=== PATIENT | male | born 1935 | race Two or more races ===

== ENCOUNTER 2021-05-26 15:45 | Inpatient (IN) | payer OTHER ==
[~2021-05-26] VITALS: Ht 167.6 cm; Wt 88.5 kg
--- NOTE | 2021-05-26 15:45 | NUR ---
BIBRA 85 from home c/o right sided chest pain radiates to midsternal pain on/off x 15days, Pressure-like per patient report. Patient was given ASA 162mg PO and 0.4 Nitro SL. Patient has nitro patch noted on his right chest. EKG in progress at . EKG: ventricular paced at 65bpm. Resp is even and unlabored with no apparent distress noted. Awaiting md for eval.
[2021-05-26] MEDS ORDERED: NITROGLYCERIN PACKET 1 GM PACKET ONE (16:28)
[2021-05-26] MEDS ORDERED: ASPIRIN 81 MG TAB.CHEW ONE (16:29)
[2021-05-26] MEDS ORDERED: ASPIRIN 81 MG TAB.CHEW PO ONE (16:30)
[2021-05-26] MEDS ORDERED: NITROGLYCERIN PACKET 1 GM PACKET TD ONE (16:30)
[2021-05-26 16:45] LABS: BASOPHILS % (AUTO) 0.5 % (0.0-2.0); EOSINOPHILS % (AUTO) 0.8 % (0.0-6.0); HEMATOCRIT 37 % (39-51); HEMOGLOBIN 12.6 g/dL (13.5-17.5); LYMPHOCYTES # (AUTO) 1.7 K/uL (0.8-4.8); MEAN CORPUSCULAR HGB CONC 34 g/dl (31.0-36.0); MEAN CORPUSCULAR VOLUME 97 fL (80-96); MONOCYTES # (AUTO) 0.9 K/uL (0.1-1.30); MONOCYTES % (AUTO) 13.2 % (2.0-12.0); NEUTROPHILS % (AUTO) 59.5 % (43.0-81.0); PLATELET COUNT (AUTO) 195 K/uL (150-450); WHITE BLOOD COUNT (AUTO) 6.7 K/uL (4.3-11.0)
--- NOTE | 2021-05-26 16:57 | NUR ---
SPOKE TO GRAND DAUGHTER CEE [phone]
[2021-05-26 16:58] LABS: CALCIUM, SERUM 9.1 mg/dL (8.5-10.1); CREATININE 1.2 mg/dL (0.6-1.3); POTASSIUM 3.9 mmol/L (3.5-5.1)
[2021-05-26 17:03] LABS: ALBUMIN 3.9 g/dL (3.4-5.0); BILIRUBIN,DIRECT 0.2 mg/dL (0.0-0.2); BILIRUBIN,TOTAL 0.6 mg/dL (0.2-1.0); TOTAL PROTEIN, SERUM 7.2 g/dL (6.4-8.2)
[2021-05-26] MEDS ORDERED: DILT300C57 PO (17:20)
[2021-05-26] MEDS ORDERED: ACET-868 PO (17:20)
[2021-05-26] MEDS ORDERED: FURO20TA4 PO (17:20)
[2021-05-26] MEDS ORDERED: NITR1PAT80 TD (17:20)
[2021-05-26] MEDS ORDERED: CARV6.252 PO (17:20)
[2021-05-26] MEDS ORDERED: TERA10CA4 PO (17:20)
[2021-05-26] MEDS ORDERED: TRAZ-182 PO (17:20)
[2021-05-26] MEDS ORDERED: FINA5TAB11 PO (17:20)
[2021-05-26] MEDS ORDERED: FLUT1BLS12 IH (17:20)
[2021-05-26] MEDS ORDERED: PRAV20TA4 PO (17:20)
[2021-05-26] MEDS ORDERED: DABI110C PO (17:20)
--- NOTE | 2021-05-26 17:41 | NUR ---
CALLED XAVIER BACA AWAITING CALL BACK FROM
--- NOTE | 2021-05-26 17:48 | NUR ---
DR SRINIVASAN SPEAKING WITH XAVIER HOLLIS
--- NOTE | 2021-05-26 17:58 | NUR ---
[facility] CALLED VAULT INSTALLER PAGED.
[2021-05-26] MEDS ORDERED: Z GUARD REMEDY 4 OZ OINT TP PRN (18:30)
[2021-05-26] MEDS ORDERED: TRAZODONE 50 MG TABLET PO PRN (18:30)
[2021-05-26] MEDS ORDERED: MAG HYDROX/AL HYDROX/SIMETH 30 ML UDC PO PRN (18:30)
[2021-05-26] MEDS ORDERED: MAGNESIUM HYDROXIDE 30 ML UDC PO PRN (18:30)
[2021-05-26] MEDS ORDERED: ONDANSETRON HCL/PF 4 MG/2 ML VIAL IVP PRN (18:30)
[2021-05-26] MEDS ORDERED: ACETAMINOPHEN 325 MG TABLET PO PRN ×2 (18:30)
--- NOTE | 2021-05-26 18:54 | NUR ---
COVID TEST COLLECTED AND SENT
[2021-05-26] MEDS: DABIGATRAN ETEXILATE MESYLATE 150 MG CAPSULE PO SCH (20:16)
--- NOTE | 2021-05-26 20:42 | NUR ---
REPORTT GIVEN TO MANDI GONZALEZ
[2021-05-26 20:45] VITALS: BP 120/74
--- NOTE | 2021-05-26 20:45 | NUR ---
PICKERS MATERIAL HANDLERS NOTE: RECEIVED REPORT FROM FUNDRAISING COORDINATOR CS.
[2021-05-26 21:10] VITALS: BP 120/74
--- NOTE | 2021-05-26 21:11 | NUR ---
PT TRANSFERED PER ACLS PROTOCOL
--- NOTE | 2021-05-26 21:15 | NUR ---
INTERLIBRARY LOAN SPECIALIST NOTE: RECEIVED PATIENT VIA GURNEY. PATIENT AMBULATED SBA FROM [place] TO BED WITH STEADY GAIT. EXTERNAL CUSTOMER SERVICE LEADER APPLIED. VSS. NAD. DETECTIVE CHIEF PRESENT FOR ADMISSION ASSESSMENT AND HX. IV TO L AC 18 GAUGE SL. FLUSHED AND PATENT. NO S/SX ERYTHEMA/INFILTRATION TO OR SURROUNDING CATHETER INSERTION SITE. DRESSING C/D/I. PATIENT C/O 05/12 PAIN TO CHEST AND UPPER ABD. LUNG SOUNDS CTA THROUGHOUT BILATERAL LUNG BEARD. NO SOB OBSERVED/REPORTED. EASILY AUDIBLE HEART SOUNDS TO AUSCULTATION. STRONG AND EASILY PALPABLE DP AND RADIAL PULSES. CAP REFILL < 2 SECONDS. NO PERIPHERAL EDEMA OBSERVED THROUGHOUT. HYPERACTIVE BSX4. PATIENT STATES HIS LAST BM WAS 2 DAYS AGO AND NORMAL. VERBALIZES THAT HE HAS PERIODIC EPISODES OF DIARRHEA. PATIENT ORIENTED TO ROOM, BED/TV REMOTE AND CALL LIGHT. BED IN LOW/LOCKED POSITION. HOB ELEVATED TO SEMI-FOWLERS POSITION. SIDE RAILS UP X2. PATIENT DEMONSTRATES ABILITY TO USE CALL LIGHT AND VERBALIZE NEEDS EFFECTIVELY. PATIENT VERBALIZES UNDERSTANDING OF PLAN OF CARE R/T DX HIGH RISK OF ACS. PATIENT VERBALIZES UNDERSTANDING OF ACQUIRING ASSISTANCE PRIOR TO TRANSFER TO PREVENT FALLS.
[2021-05-26] MEDS: TERAZOSIN HCL 5 MG CAPSULE PO SCH (22:31)
[2021-05-27] VITALS (7 sets, daily range): BP systolic 118–158; BP diastolic 60–73
--- NOTE | 2021-05-27 06:06 | NUR ---
FUR DYER CLOSING NOTE: PATIENT SLEPT THROUGHOUT THE EVENING WITHOUT COMPLICATION OR DIFFICULTY. AZERI SPEAKING ONLY, TASSEL CLIPPER PRESENT. EASILY AROUSED BY VOICE COMMAND. ALERT AND ORIENTED TO PERSON, PLACE, TIME AND SITUATION. VSS AND NAD. TELEMETRY READING V-PACING 65. BED IN LOW/LOCKED POSITION. SIDE RAILS UP X2. HOB ELEVATED TO SEMI-FOWLERS POSITION. PATIENT DEMONSTRATES ABILITY TO USE CALL LIGHT AND VERBALIZE NEEDS EFFECTIVELY.
[2021-05-27 06:46] LABS: BASOPHILS % (AUTO) 0.5 % (0.0-2.0); EOSINOPHILS % (AUTO) 0.9 % (0.0-6.0); HEMATOCRIT 34 % (39-51); HEMOGLOBIN 12.1 g/dL (13.5-17.5); LYMPHOCYTES # (AUTO) 1.8 K/uL (0.8-4.8); LYMPHOCYTES % (AUTO) 30.3 % (20.0-44.0); MEAN CORPUSCULAR HGB CONC 35 g/dl (31.0-36.0); MEAN CORPUSCULAR VOLUME 96 fL (80-96); MONOCYTES # (AUTO) 0.8 K/uL (0.1-1.30); MONOCYTES % (AUTO) 13.2 % (2.0-12.0); NEUTROPHILS # (AUTO) 3.2 K/uL (1.8-8.9); NEUTROPHILS % (AUTO) 55.1 % (43.0-81.0); PLATELET COUNT (AUTO) 181 K/uL (150-450); RED BLOOD CELL COUNT(AUTO) 3.57 MIL/uL (4.5-6.0); WHITE BLOOD COUNT (AUTO) 5.8 K/uL (4.3-11.0)
[2021-05-27 07:13] LABS: CALCIUM, SERUM 9.2 mg/dL (8.5-10.1); MAGNESIUM 2.4 mg/dL (1.8-2.4); PHOSPHORUS 3.2 mg/dL (2.5-4.9); POTASSIUM 3.6 mmol/L (3.5-5.1)
--- NOTE | 2021-05-27 07:20 | NUR ---
RETAIL PROPERTY MANAGER OPENING NOTES RECEIVED PATIENT IN BED AWAKE, A/O X4. ETHIOPIAN SPEAKING ONLY. NO S/SX OF RESPIRATORY DISTRESS ON RA. TELE MONITOR SHOWS V-PACING 64. LAC G#18 INTACT AND PATENT. BED IN LOW/LOCKED POSITION. SIDE RAILS UP X2. HOB ELEVATED TO SEMI-FOWLERS POSITION. WILL CONTINUE PLAN OF CARE
--- NOTE | 2021-05-27 07:40 | NUR ---
BOOM CAT OPERATOR NOTES PATIENT GIVES CONSENT FOR CT ANGIO HEART WITH 3D IMAGING. PATIENT WAS TRANSFERRED DOWN TO LACING STRING CUTTER ACCOMPANIED BY ONE TECH VIA WHEEL CHAIR.
[2021-05-27] MEDS ORDERED: IOHEXOL-350 100 ML VIAL IV ONE (07:45)
[2021-05-27] MEDS ORDERED: METOPROLOL TARTRATE INJ 5 MG/5 ML AMPUL ONE (07:57)
[2021-05-27] MEDS ORDERED: METOPROLOL TARTRATE INJ 5 MG/5 ML AMPUL IVP PRN (08:00)
[2021-05-27] MEDS ORDERED: NITROGLYCERIN 0.4 MG/TAB BOTTLE SL ONE (08:00)
--- NOTE | 2021-05-27 08:06 | NUR ---
pt consented to CTA heart with 3D imaging; Vpaced on monitor at 66; given Lopressor 5mg/IVPx1; tolerated procedure; VSS ; report given to MANDI Aaron; transferred back to floor via wheelchair
--- NOTE | 2021-05-27 08:08 | NUR ---
FOAM RUBBER FABRICATOR NOTES RECEIVED OVER THE PHONE REPORT FROM SUPERVISOR COMPRESSED YEAST NURSE. PATIENT WAS GIVEN 1 DOSE OF LOPRESSOR 5MG IVP FOR BLOOD PRESSURE. CURRENT BLOOD PRESSURE IS NOW 159/60. PATIENT REMAINS STABLE AFTER PROCEDURE.
--- NOTE | 2021-05-27 08:13 | NUR ---
LOBSTER FISHERMAN NOTES PATIENT WAS TRANSFERRED BACK TO ROOM BY ONE CAR LOT ATTENDANT VIA WHEELCHAIR. NO COMPLAINTS VERBALIZED AT THIS TIME. PATIENT IS STABLE IN BED. WILL KEEP MONITORING
[2021-05-27] MEDS: FINASTERIDE (5 MG) 5 MG TABLET PO SCH (09:17)
[2021-05-27] MEDS: DABIGATRAN ETEXILATE MESYLATE 150 MG CAPSULE PO SCH ×2 (09:18→17:16)
[2021-05-27] MEDS: ASPIRIN 81 MG TAB.CHEW PO SCH (09:18)
[2021-05-27] MEDS: CARVEDILOL 6.25 MG TABLET PO SCH ×2 (09:19→17:14)
[2021-05-27] MEDS: ATORVASTATIN 10 MG TABLET PO SCH (09:20)
[2021-05-27] MEDS ORDERED: PSYLLIUM SEED 1 PKT PACKET PO ONE (10:30)
[2021-05-27] MEDS ORDERED: DOCUSATE SODIUM LIQ 100 MG/10 ML UDC NG SCH (10:30)
[2021-05-27] MEDS: DILTIAZEM HCL CD 300 MG PO SCH (10:46)
[2021-05-27] MEDS: FLUTICASONE/VILANTEROL 1 EACH BLST.W.DEV IH SCH (10:47)
[2021-05-27] MEDS: NITROGLYCERIN 0.1 MG/HR PATCH.TD24 TD SCH (10:47)
--- NOTE | 2021-05-27 18:50 | NUR ---
ECHOCARDIOGRAPH TECHNICIAN CLOSING NOTES PATIENT IN BED AWAKE, A/O X4. MALDIVIAN SPEAKING ONLY. NO S/SX OF RESPIRATORY DISTRESS ON RA. LAC G#18 INTACT AND PATENT. BED IN LOW/LOCKED POSITION. SIDE RAILS UP X2. HOB ELEVATED TO SEMI-FOWLERS POSITION. WILL ENDORSE TO EXPLORATION GEOLOGIST NURSE FOR NAYAN
--- NOTE | 2021-05-27 20:04 | NUR ---
MS RN NOTES: RECEIVED PATIENT AWAKE, A/O X3. PATIENT IS [place] ISLANDER SPEAKING. ON 2L OXYGEN VIA NC. NO S/S OF DISTRESS. RESPIRATION EVEN AND UNLABORED WITH EQUAL RISE AND FALL OF THE CHEST. OFFERED FLUID AND SNACKS TOLERATED. WILL CONTINUE TO MONITOR.
[2021-05-27] MEDS: TERAZOSIN HCL 5 MG CAPSULE PO SCH (21:57)
[2021-05-28 00:52] VITALS: BP 138/66
[2021-05-28 04:38] VITALS: BP 161/76
--- NOTE | 2021-05-28 06:59 | NUR ---
MS RN CLOSING NOTES: PATIENT SLEEPING COMFORTABLE IN BED, EASILY AROUSABLE. NO C/O PAIN AT THIS TIME. PATIENT IS ON OXYGEN 2L VIA NC. NO S/S OF DISTRESS. RESPIRATION EVEN AND UNLABORED WITH EQUAL RISE AND FALL OF THE CHEST. BED IN LOWEST POSITION AND LOCKED, SIDE RAILS UP X2 FOR SAFETY. ALL PATIENT CARE NEEDS HAVE BEEN MET AT THIS TIME. WILL CONTINUE TO MONITOR AND ENDORSE TO AM SHIFT.
--- NOTE | 2021-05-28 07:20 | NUR ---
MS RN OPENING NOTES RECEIVED PATIENT IN BED AWAKE, A/O X4. PALESTINIAN SPEAKING ONLY. EQUAL CHEST EXPANSION WITH NO S/SX OF RESPIRATORY DISTRESS ON RA. NO PAIN VERBALIZED AT THIS TIME. LAC G#18 INTACT AND PATENT. BED IN LOW/LOCKED POSITION. SIDE RAILS UP X2. HOB ELEVATED TO SEMI-FOWLERS POSITION. SAFETY PRECAUTIONS IN PLACE: BED IN LOWEST POSITION, WHEELS LOCKED, CALL LIGHT WITHIN REACH AND SIDE RAILS UP X2. WILL CONTINUE TO MONITOR PATIENT
[2021-05-28 08:00] VITALS: BP 144/70
[2021-05-28] MEDS: ATORVASTATIN 10 MG TABLET PO SCH (08:54)
[2021-05-28] MEDS: ASPIRIN 81 MG TAB.CHEW PO SCH (08:54)
[2021-05-28] MEDS: DILTIAZEM HCL CD 300 MG PO SCH (08:56)
[2021-05-28] MEDS: FINASTERIDE (5 MG) 5 MG TABLET PO SCH (08:57)
[2021-05-28] MEDS: CARVEDILOL 6.25 MG TABLET PO SCH (08:57)
[2021-05-28] MEDS: DABIGATRAN ETEXILATE MESYLATE 150 MG CAPSULE PO SCH (08:59)
[2021-05-28] MEDS ORDERED: DOCUSATE SODIUM 100 MG CAPSULE PO SCH (09:00)
[2021-05-28] MEDS: NITROGLYCERIN 0.1 MG/HR PATCH.TD24 TD SCH (09:04)
[2021-05-28] MEDS: FLUTICASONE/VILANTEROL 1 EACH BLST.W.DEV IH SCH (09:04)
[2021-05-28 12:46] LABS: CHOLESTEROL 138 mg/dL (<200); HDL CHOLESTEROL 50 mg/dL (40-60); LDL 81 mg/dL (0-99); TRIGLYCERIDES 52 mg/dL (30-150)
[2021-05-28 16:00] VITALS: BP 138/72
--- NOTE | 2021-05-28 17:00 | NUR ---
RN NOTES PATIENT STABLE FOR DISCHARGE. DISCHARGE INSTRUCTIONS WERE PROVIDED FOR PATIENT. PATIENT VERBALIZED UNDERSTANDING. PATIENT WAS GIVEN EXIT PACKET. ALL LINES WERE REMOVED AND ID BAND REMOVED. PATIENT WAS ACCOMPANIED BY ONE RUBBER GOODS INSPECTOR VIA WHEELCHAIR TO PRIVATE CAR. PATIENT LEFT FACILITY WITH BROTHER, MICHELLE.
== END 2021-05-28 17:00 | disposition home or self-care (01) | DRG 303 ==
LOC: ER 15:47 → TRANSITION 18:36 → TELE 20:43 → MED 05-27 11:22
PROVIDERS: ADMIT Nurse Practitioner Acute Care; ATTEND Nurse Practitioner Acute Care
DX: I25.10 Atherosclerotic heart disease of native coronary artery without angina pectoris (principal); M19.90 Unspecified osteoarthritis, unspecified site; I48.91 Unspecified atrial fibrillation; E78.5 Hyperlipidemia, unspecified; N40.0 Benign prostatic hyperplasia without lower urinary tract symptoms; K59.00 Constipation, unspecified; Z95.0 Presence of cardiac pacemaker; I10 Essential (primary) hypertension; E78.00 Pure hypercholesterolemia, unspecified; Z79.899 Other long term (current) drug therapy; E66.9 Obesity, unspecified; Z68.31 Body mass index [BMI] 31.0-31.9, adult; I27.20 Pulmonary hypertension, unspecified; Z79.01 Long term (current) use of anticoagulants
CPT/HCPCS: 36415; 71045-TC; 75574; 80048-TC; 80061-TC; 80076-TC; 83735-TC; 84100-TC; 84484-TC; 85025-TC; 87081-TC; 93307-TC; G0378; J3490; Q9967